=== PATIENT | female | born 1965 | race Caucasian/White ===

== ENCOUNTER → 2017-02-27 | Outpatient (CLI) | payer SELFPAY ==
--- NOTE | 2017-03-06 22:14 | DI ---
AP PELVIS, 02/27/2017 10:22 AM : Clinical History: ] Displaced fracture of the pelvis. Previous Exam: None at this facility. There is no soft tissue abnormality. There are fractures of the right superior and inferior pubic calixto i as well as the left superior pubic ramus. Lucencies are coursing through the margins of the sacral neural foraminal on the right side at S2-3 and S3-4 and these are suspicious for sacral fractures. Th ere is no diastases of the SI joints. The AP projection of each hip is normal. Readin. There are fractures of the right superior and inferior pubic rami and the left superior pubic calixto us. These may represent healing fractures. 2. There are lucencies through the right sacral neural foraminal openings at S2-3 and S3-4, suspicio us for fractures involving the right side of the sacrum.
== END ==
LOC: ORTHO 11:38
PROVIDERS: ATTEND Orthopaedic Surgery
DX: S32.591A Other specified fracture of right pubis, initial encounter for closed fracture (principal)
CPT/HCPCS: 72170